=== PATIENT | female | born 1975 | race Two or more races ===

== ENCOUNTER 2018-02-24 16:49 | Emergency (ER) | payer MEDICAID ==
[~2018-02-24] VITALS: Ht 149.9 cm; Wt 86.2 kg
--- NOTE | 2018-02-24 16:50 | NUR ---
BIBRA 878 FOR DIZZINESS, PT WAS DRIVING AND PULLED OVER HER CAR AND CALLED 911 D/T DIZZINESS, 34 WEEKS , A0. A/OX 4, BREATHING EVEN AND UNLABORED. NO SOB, NAD, VITALS STABLE. SAFETY AND COMFORT MEASURES IN PLACE. AWAITING MD ORDERS.
--- NOTE | 2018-02-24 17:25 | NUR ---
NEW IV STARTED ON RAC, 20G. BLOOD DRAWN AND SENT TO LAB.
--- NOTE | 2018-02-24 17:29 | NUR ---
IVF STARTED PER MD ORDERS.
[2018-02-24] MEDS ORDERED: IV NS 0.9% 1,000 ML BAG IV ONE (17:30)
[2018-02-24 17:32] LABS: BASOPHILS # (AUTO) 0.2 /CMM (0.0-0.2); BASOPHILS % (AUTO) 2.1 % (0.0-2.0); EOSINOPHILS % (AUTO) 1.1 % (0.0-6.0); HEMATOCRIT 37 % (33-45); HEMOGLOBIN 11.9 g/dL (11.5-14.8); LYMPHOCYTES # (AUTO) 2.2 /CMM (0.8-4.8); LYMPHOCYTES % (AUTO) 26.7 % (20.0-44.0); MEAN CORPUSCULAR HEMOGLOBIN 27 PG (26.0-33.0); MEAN CORPUSCULAR HGB CONC 33 g/dl (31.0-36.0); MEAN CORPUSCULAR VOLUME 84 fL (82-100); MONOCYTES # (AUTO) 0.6 /CMM (0.1-1.30); MONOCYTES % (AUTO) 7.2 % (2.0-12.0); NEUTROPHILS # (AUTO) 5.2 /CMM (1.8-8.9); NEUTROPHILS % (AUTO) 62.9 % (43.0-81.0); PLATELET COUNT (AUTO) 220 /CMM (150-450); RDW COEFFICIENT OF VARIATION 13.6 (11.5-15.0); RED BLOOD CELL COUNT(AUTO) 4.36 MIL/uL (4.0-5.2); WHITE BLOOD COUNT (AUTO) 8.3 K/uL (4.3-11.0)
[2018-02-24 17:40] LABS: CALCIUM, SERUM 8.5 mg/dL (8.5-10.1); CREATININE 0.6 mg/dL (0.6-1.3); POTASSIUM 3.3 mmol/L (3.5-5.1)
[2018-02-24 17:47] LABS: ALBUMIN 2.3 g/dL (3.4-5.0); BILIRUBIN,TOTAL 0.1 mg/dL (0.2-1.0); TOTAL PROTEIN, SERUM 6.1 g/dL (6.4-8.2)
--- NOTE | 2018-02-24 19:00 | NUR ---
IV removed. Catheter intact and site benign. Pressure and 4x4 applied to site. No bleeding noted. Patient discharged to home in stable condition. Written and verbal after care instructions given. Patient verbalizes understanding of instruction.
[2018-02-24 19:03] VITALS: BP 108/66
== END 2018-02-24 19:00 | disposition home or self-care (01) ==
LOC: ER 16:51
DX: O26.893 Other specified pregnancy related conditions, third trimester (principal); R42 Dizziness and giddiness; E87.6 Hypokalemia; R00.0 Tachycardia, unspecified; Z3A.34 34 weeks gestation of pregnancy
CPT/HCPCS: 36415; 80048; 80076; 85025; 93005; 96360; 99285; A4606; J7030; Z7610